=== PATIENT | male | born 1940 | race Caucasian/White ===

== ENCOUNTER 2019-08-16 05:44 | Observation (INO) | payer MEDICARE ==
[~2019-08-16] VITALS: Ht 180.3 cm; Wt 102.1 kg
[~2019-08-16 05:44] MED LIST: ASPIRIN81 M2 PO; FOSINOPRIL SODI40 M1 PO; Z.0.ACTOS45 MG PO; Z.0.GLIMEPIRIDE4 MG PO; Z.0.LANSOPRAZOLE30 M PO; Z.0.LIPITOR80 MG PO; Z.0.METOPROLOL TAR10 PO; Z.0.TRICOR145 MG PO; Z.0.ZANTAC 7575 MG PO
[2019-08-16 06:35] LABS: BASOPHILS % 0.3 % (0.0-1.0); EOSINOPHILS % 0.2 % (0.0-6.0); HEMATOCRIT 39.2 % (38.2-49.6); HEMOGLOBIN 12.7 g/dL (14.0-18.0); LYMPHOCYTES # (AUTO) 0.4 (1.0-3.2); MEAN CORPUSCULAR HEMOGLOBIN 30.9 pg (28-32); MEAN CORPUSCULAR HGB CONC 32.4 g/dL (31-35); MEAN CORPUSCULAR VOLUME 95.4 fL (81-99); MONOCYTES # (AUTO) 0.8 (0.2-0.8); MONOCYTES % 6.4 % (4.4-11.3); NEUTROPHILS # (AUTO) 10.7 (2.1-6.9); NEUTROPHILS % 89.5 % (38.7-80.0); PLATELET COUNT 105 x10e3/uL (140-360); RED BLOOD COUNT 4.11 x10e6/uL (4.3-5.7); RED CELL DISTRIBUTION WIDTH 14.1 % (11.7-14.4)
[2019-08-16 06:40] LABS: INR 0.91; PROTHROMBIN TIME 12.8 seconds (11.9-14.5)
[2019-08-16 06:48] LABS: CLARITY,URINE CLOUDY (CLEAR); COLOR,URINE RED (YELLOW); LEUKOCYTE ESTERASE ,URINE LARGE (NEGATIVE); NITRITE,URINE NEGATIVE (NEGATIVE); PROTEIN,URINE DIPSTICK 3+ (NEGATIVE)
[2019-08-16 06:49] LABS: BILIRUBIN,URINE NEGATIVE (NEGATIVE); KETONES,URINE NEGATIVE (NEGATIVE); URINE UROBILINOGEN 0.2 mg/dL (0.2 - 1)
[2019-08-16 06:50] LABS: ALANINE AMINOTRANSFERASE 30 IU/L (0-55); ALBUMIN 3.3 g/dL (3.5-5.0); ALBUMIN/GLOBULIN RATIO 1.1 (0.8-2.0); ALKALINE PHOSPHATASE 67 IU/L (40-150); BLOOD UREA NITROGEN 30 mg/dL (7-26); BUN/CREATININE RATIO 21 (6-25); CALCIUM 9.1 mg/dL (8.4-10.2); CARBON DIOXIDE 24 mmol/L (22-29); CHLORIDE 102 mmol/L (98-107); CREATINE KINASE 110 IU/L (30-200); EST GLOMERULAR FILTRATION RATE 49 ML/MIN (60-); GLUCOSE 232 mg/dL (74-118); SODIUM 136 mmol/L (136-145)
--- NOTE | 2019-08-16 06:53 | NUR ---
report given to flor castañeda
--- NOTE | 2019-08-16 06:57 | Diagnostic Imaging Report ---
EXAMINATION: CT of the abdomen and pelvis without contrast. TECHNIQUE: Spiral CT images of the abdomen and pelvis were performed from the lung bases to the lesser trochanters. No intravenous contrast was given per renal stone protocol. Coronal and sagittal reformatted images were obtained. COMPARISON: None. CLINICAL HISTORY:Hematuria DISCUSSION: ABSENCE OF INTRAVENOUS CONTRAST DECREASES SENSITIVITY FOR DETECTION OF FOCAL LESIONS AND VASCULAR PATHOLOGY. ABDOMEN/PELVIS: LOWER THORAX: Lung bases are unremarkable. No pleural effusion. Trace pericardial effusion. HEPATOBILIARY:No focal hepatic lesions. No intrahepatic biliary ductal dilation. The gallbladder is unremarkable. SPLEEN: No splenomegaly or focal splenic lesion. PANCREAS: No focal masses or ductal dilatation. ADRENALS: No adrenal nodule. KIDNEYS/URETERS: No hydronephrosis, calculi, or solid or cystic mass lesions. PELVIC ORGANS/BLADDER: The urinary bladder is collapsed and poorly evaluated. Coarse prostatic calcifications. PERITONEUM/RETROPERITONEUM: No ascites or pneumoperitoneum. LYMPH NODES: No pelvic sidewall, retroperitoneal, or mesenteric lymphadenopathy. VESSELS: Limited evaluation in the abscence of intravenous contrast. The abdominal aorta is non-aneurysmal. GI TRACT: Scattered sigmoid diverticula without wall thickening or adjacent inflammatory change. Appendix is not definitively visualized. No right lower quadrant inflammation. No small bowel dilatation to suggest obstruction. BONES AND SOFT TISSUES: Bilateral fat-containing inguinal hernias. Small fat-containing umbilical hernia. No osseous destructive lesions. Scattered bone islands area nonaggressive appearing sclerotic focus in the left iliac wing. Degenerative facet arthropathy and degenerative disc changes of the lumbar spine. IMPRESSION: No acute intra-abdominal or pelvic CT abnormalities. No urolithiasis. Atherosclerotic vascular disease. Large bowel diverticulosis without findings of diverticulitis. Trace nonspecific pericardial effusion. Signed by: Dr. Baljinder Noble M.D. on 08/16/2019 6:55 AM
[2019-08-16 06:59] LABS: BACTERIA,URINE MODERATE /HPF; EPITHELIAL CELLS,URINE FEW /LPF; RBC,URINE >50 /HPF (0-5); WBC,URINE (MAN) >50 /HPF (0-5)
[2019-08-16] MEDS ORDERED: MORPHINE SULFATE INJ 4 MG/ML INJ 1ML IV PRN (07:00)
[2019-08-16] MEDS ORDERED: ASPIRIN 81 MG CHEW TAB PO ONE (07:00)
[2019-08-16] MEDS ORDERED: ONDANSETRON HCL INJ 2MG/ML 2ML 2 MG/ML VIAL IV PRN (07:00)
--- OUTSIDE RECORDS SUMMARY | 2019-08-16 07:26 | XMS REPORT ---
Author Author [facility] Address Unknown Phone Unavailable Care Team Providers Care Work Order Detailer Name Role Phone RAMOS LAURA Unavailable Unavailable Problems This patient has no known problems. Allergies, Adverse Reactions, Alerts This patient has no known allergies or adverse reactions. Medications This patient has no known medications. Results Test Description Test Time Test Comments Text Results Atomic Results Result Comments CT ABDOMEN/PELVIS WO 2019-08-16 06:49:00 [facility] [address] [place] [address] Patient Name: KEITH WILL MR #: [id number] : 1940 Age/Sex: 79/M Req #: [id number] Adm Physician: Ordered by: LAURA RAMOS DO Report #: [id number] Location: ER Room/Bed: Procedure: [id number] CT/CT ABDOMEN/PELVIS WO Exam Date: Exam Time: REPORT STATUS: Signed EXAMINATION: CT of the abdomen and pelvis without contrast. TECH NIQUE: Spiral CT images of the abdomen and pelvis were performed from the lung bases to the lesser trochanters. No intravenous contrast was given per renal stone protocol. Coronal and sagittal reformatted images were obtained. COMPARISON: None. CLINICAL HISTORY:Hematuria DISCUSSION: ABSENCE OF INTRAVENOUS CONTRAST DECREASES SENSITIVITY FOR DETECTION OF FOCAL LESIONS AND VASCULAR PATHOLOGY. ABDOMEN/PELVIS: LOWER THORAX: Lung bases are unremarkable. No pleural effusion. Trace pericardial effusion. HEPATOBILIARY:No focal hepatic lesions. No intrahepatic biliary ductal dilation. The gallbladder is unremarkable. SPLEEN: No splenomegaly or focal splenic lesion. PANCREAS: No focal masses or ductal dilatation. ADRENALS: No adrenal nodule. KIDNEYS/URETERS: No hydronephrosis, calculi, or solid or cystic mass lesions. PELVIC ORGANS/BLADDER: The urinary bladder is collapsed and poorly evaluated. Coarse prostatic calcifications. PERITONEUM/RETROPERITONEUM: No ascites or pneumoperitoneum. LYMPH NODES: No pelvic sidewall, retroperitoneal, or mesenteric lymphadenopathy. VESSELS: Limited evaluation in the abscence of intravenous contrast. The abdominal aorta is non-aneurysmal. GI TRACT: Scattered sigmoid diverticula without wall thickening or adjacent inflammatory change. Appendix is not definitively visualized. No right lower quadrant inflammation. No small bowel dilatation to suggest obstruction. BONES AND SOFT TISSUES: Bilateral fat-containing inguinal hernias. Small fat-containing umbilical hernia. No osseous destructive lesions. Scattered bone islands area nonaggressive appearing sclerotic focus in the left iliac wing. Degenerative facet arthropathy and degenerative disc changes of the lumbar spine. IMPRESSION: No acute intra-abdominal or pelvic CT abnormalities. No urolithiasis. Atherosclerotic vascular disease. Large bowel diverticulosis without findings of diverticulitis. Trace nonspecific pericardial effusion. Signed by: Dr. Antonia Solano M.D. on 08/16/2019 6:55 AM Dictated By: ANTONIA SOLANO MD 4 Transcribed By: SARKIS on 08/16/19654 COPY TO: LAURA RAMOS DO
[2019-08-16 08:54] LABS: BAND NEUTROPHILS % (MANUAL) 4 %; LYMPHOCYTES % (MANUAL) 2 % (19-48); MONOCYTES % (MANUAL) 5 % (3.4-9.0); NEUTROPHILS % (MANUAL) 89 % (40-74); PLATELET ESTIMATE SLIGHTLY DECREASED; PLATELET MORPHOLOGY COMMENT NORMAL; RBC MORPHOLOGY COMMENT NORMAL
[2019-08-16] MEDS ORDERED: NON-FORMULARY MEDICATION (Aspirin 81 MG) PO SCH (09:15)
[2019-08-16] MEDS ORDERED: NON-FORMULARY MEDICATION (Atorvastatin Calcium (Lipitor) 80 MG) PO SCH (09:15)
--- NOTE | 2019-08-16 10:17 | NUR ---
up to restroom
[2019-08-16] MEDS ORDERED: METOPROLOL SUCCINATE 25 MG TAB XL ONE (13:02)
[2019-08-16] MEDS: METOPROLOL TARTRATE 50 MG TAB PO SCH ×2 (13:06→17:39)
[2019-08-16] MEDS ORDERED: SODIUM CHLORIDE 0.9% 1000ML 1,000 ML IV SCH (13:15)
[2019-08-16] MEDS ORDERED: CEFTRIAXONE SOD 1 GM/NS 50 ML 50 ML IV ONE (13:15)
--- NOTE | 2019-08-16 13:41 | Diagnostic Imaging Report ---
EXAM: CHEST 2 VIEWS DATE: 08/16/2019 12:34 PM INDICATION: Chest pain COMPARISON: None FINDINGS: The trachea is midline. The lungs are symmetrically expanded without evidence for large focal consolidation, pneumothorax, or significant pleural effusion. The cardiomediastinal silhouette and pulmonary vasculature are within normal limits. Atherosclerotic calcifications noted within the thoracic aorta. No acute osseous abnormality is identified. The surrounding soft tissues are unremarkable. IMPRESSION: No acute cardiopulmonary process identified. Signed by: Dr. Eugenio Monteiro MD on 08/16/2019 1:39 PM
[2019-08-16] MEDS ORDERED: CEFTRIAXONE SOD 1 GM VIAL ONE (14:23)
--- NOTE | 2019-08-16 15:06 | NUR ---
Received patient from ER, a/ox3, pleasant man and chief complaint of chest pain and hematuria. consults to cardiology and hematology and have seen patient in the ER, currently denies any chest pains, BNP elevated in the 300's, denies SOB. Reports symptoms started yesterday and waxing and waning. On continues telemetry. PMH significant for DM, HTN, GERD, HLD. Further work-up depending on clinical course and orders in place for thyroid panel, occult blood, cardiac markers, ECHO. Call light within reach and will monitor.
[2019-08-16 15:10] VITALS: BP 133/63
[2019-08-16 15:16] VITALS: BP 133/63
[2019-08-16 15:24] LABS: CREATINE KINASE 154 IU/L (30-200)
--- NOTE | 2019-08-16 16:24 | NUR ---
Orders per Dr. Alvarez for medium dose sliding scale and to increase Glimiperide to BiD.
[2019-08-16] MEDS: INSULIN REGULAR, HUMAN 100 UNIT/1 ML 3ML VIAL SQ SCH ×2 (16:30→21:00)
[2019-08-16] MEDS ORDERED: DEXTROSE 50% SYRINGE 50 ML IV PRN (16:30)
[2019-08-16] MEDS: GLIMEPIRIDE 2 MG TAB PO SCH (17:00)
[2019-08-16] MEDS: SODIUM CHLORIDE 0.9% 1000ML 1,000 ML SCH (17:00)
--- NOTE | 2019-08-16 19:03 | NUR ---
Rounds by Dr. Pedroza and orders in place for heart cath and other orders for iodine allergies
--- NOTE | 2019-08-16 19:15 | NUR ---
patient received awake, alert, lying quietly in bed. no c/o pain noted. ivf continue to infuse without difficulty. pm assessment complete. plan of care reviewed with patient. patient to be npo past mn for cardiac cath tomorrow. patient verbalizes understanding of this. call howard placed within reach. bed alarm remains on for safety. patient instructed to call for assistance when needed.
[2019-08-16] MEDS ORDERED: PREDNISONE 20 MG TAB PO NR (19:30)
[2019-08-16 19:58] VITALS: BP 137/65
[2019-08-16] MEDS: ATORVASTATIN 40 MG TAB PO SCH (20:35)
[2019-08-16] MEDS: FAMOTIDINE 20 MG TAB PO SCH (20:35)
--- NOTE | 2019-08-16 20:54 | Consultation ---
DATE OF CONSULTATION: 08/16/2019 Cardiac Consultation REASON FOR CONSULTATION: Abnormal EKG with PVCs, typical anginal symptoms, advanced symptoms. HISTORY OF PRESENT ILLNESS: A 79-year-old gentleman who came to this institution because of hematuria. He is having this for couple of days. Prior to that, he does have problem urinating and sometime he will leak. Regardless, at this time it was nikunj hematuria. The patient came to the emergency room and admitted for further management. Urinalysis showed hematuria. CT abdomen and pelvis showed diverticulosis. His EKG showed PVCs. His BUN and creatinine are elevated at 30 and 1.4. His BNP at 316. No chest x-ray was done. Talking to the patient, he does have very very typical angina, class 3 to early class 4. Whenever he walks, he will get severe chest pressure, chest tightness, radiating to his neck and to his jaw and then he will stop it. It will go away and then he can walk again. This symptoms are progressively worse over the last couple of years or so, but in the last few months it is becoming very frequent. Sometime at night, it will happen and he need to sit and then he will feel better . He denied having any nausea, no vomiting, no hematuria, no dysuria. He does have easy fatigability and chest tightness on exertion. REVIEW OF SYSTEMS: GENERAL: No fever, no chills. HEENT: Decreased hearing, decreased vision. PULMONARY: Shortness of breath on exertion with chest pressure, chest tightness, mostly cardiac. CARDIAC: Typical progressive worsening angina with very frequent episodes of angina. GI: GERD. No hematemesis. No melena. Occasional constipation. : Incontinence at times, increased frequency of urination and hematuria nikunj in the last few days. MUSCULOSKELETAL: Back pain, although it is by far much better since his laminectomy. HEMATOLOGY: Easy bruising, but no bleeding. NEUROLOGY: No seizure activity. No localized weakness. SOCIAL HISTORY: He is . He is nonsmoker. He drinks 1-2 beer a day. He is retired auto auto parts handler. HOME MEDICATIONS: Include Actos 45 mg a day, glimepiride 4 mg a day, Zantac 1 tablet a day, aspirin 81 mg a day, Lipitor 80 mg a day, fenofibrate 145 mg a day, lisinopril 40 mg a day, and metoprolol 100 mg twice a day. ALLERGIES: IODINE THAT IS MANY YEARS AGO CAUSING RASH. PAST MEDICAL HISTORY: 1. Diabetes mellitus since age 45. 2. Hypertension since age 45. 3. Hyperlipidemia since that age. 4. GERD. 5. Appendectomy. 6. Lumbar laminectomy. 7. Diverticulosis. 8. Several skin cancer surgeries. 9. Decreased hearing. FAMILY HISTORY: Father at age 91 of old age. Mother of old age at age 102. Two brothers, he lost one brother to diabetes mellitus complications at age 72. One sister, one son, and two daughters. PHYSICAL EXAMINATION: GENERAL: Obese gentleman. VITAL SIGNS: Blood pressure 130/80, heart rate of 110, and respiratory rate of 18. HEENT: Pupils are reactive. NECK: No elevation of jugular venous pulsation. Bilateral carotid bruit. No thyromegaly. CHEST: Clear to auscultation and percussion. HEART: PMI, 5th left intercostal space. Tachycardia noted with soft ejection systolic murmur. ABDOMEN: Soft with good bowel sounds. No organomegaly. EXTREMITIES: No cyanosis, no clubbing, and no edema. NEUROLOGIC: Awake, alert, and oriented. No motor deficit. Decreased hearing is noted. LABORATORY DATA: White blood cell count of 11.9, hemoglobin 12.7, hematocrit 39%, and platelet count of 105,000. Sodium of 136, potassium of 4, BUN of 30, creatinine of 1.4, and BNP of 316. Urinalysis positive for hematuria. EKG showing normal sinus rhythm, PVCs, nonspecific ST changes. Chest x-ray is not done. IMPRESSION AND PLAN: 1. Definitely the patient came with hematuria. 2. Diabetes mellitus of many years' duration. 3. Hypertension since age 45. 4. Hyperlipidemia. 5. Status post lumbar laminectomy. 6. Decreased hearing. 7. Very very typical angina progressively worse class 3 to early class 4. 8. Chronic renal insufficiency of possible class 4 with creatinine of 1.4. From a cardiac point of view, we will do the following, the patient to continue his Lipitor, his fenofibrate, his metoprolol, and just stop his lisinopril. The patient currently having hematuria, which will limit our options of cardiac treatment. Regardless, the patient in need for further procedures and he is having very typical symptoms of aggressive angina. We are going to schedule the patient for cardiac catheterization in the morning. Our options are limited. If he need intervention, probably will not do it, would refrain from that because of the hematuria. If he does have triple-vessel disease, then he will have bypass surgery. He will be premedicated for iodine allergy. MD JUAN CARLOS Marrero/MODL /[id number]
[2019-08-16] MEDS ORDERED: ASPIRIN 81 MG ENTERIC COATED PO SCH (21:00)
[2019-08-16 21:20] VITALS: BP 137/65
[2019-08-17] VITALS (9 sets, daily range): BP systolic 118–151; BP diastolic 55–66
[2019-08-17] MEDS ORDERED: PREDNISONE 20 MG TAB PO NR (05:00)
[2019-08-17] MEDS: METOPROLOL TARTRATE 50 MG TAB PO SCH ×4 (05:39→17:16)
[2019-08-17] MEDS: SODIUM CHLORIDE 0.9% 1000ML 1,000 ML SCH ×2 (05:40→09:00)
--- NOTE | 2019-08-17 05:50 | NUR ---
consent obtained for cardiac catheterization at this time and placed on chart.
[2019-08-17 05:58] LABS: BASOPHILS % 0.1 % (0.0-1.0); HEMATOCRIT 37.2 % (38.2-49.6); HEMOGLOBIN 12.3 g/dL (14.0-18.0); LYMPHOCYTES # (AUTO) 0.3 (1.0-3.2); LYMPHOCYTES % 3.3 % (18.0-39.1); MEAN CORPUSCULAR HEMOGLOBIN 31.1 pg (28-32); MEAN CORPUSCULAR HGB CONC 33.1 g/dL (31-35); MEAN CORPUSCULAR VOLUME 94.2 fL (81-99); MONOCYTES # (AUTO) 0.3 (0.2-0.8); MONOCYTES % 3.1 % (4.4-11.3); NEUTROPHILS # (AUTO) 7.9 (2.1-6.9); NEUTROPHILS % 92.7 % (38.7-80.0); PLATELET COUNT 84 x10e3/uL (140-360); RED BLOOD COUNT 3.95 x10e6/uL (4.3-5.7)
[2019-08-17 06:23] LABS: ALANINE AMINOTRANSFERASE 29 IU/L (0-55); ALBUMIN 2.9 g/dL (3.5-5.0); ALBUMIN/GLOBULIN RATIO 0.9 (0.8-2.0); ALKALINE PHOSPHATASE 62 IU/L (40-150); ANION GAP 13.2 mmol/L (8-16); BLOOD UREA NITROGEN 28 mg/dL (7-26); BUN/CREATININE RATIO 25 (6-25); CALCIUM 9.3 mg/dL (8.4-10.2); CARBON DIOXIDE 25 mmol/L (22-29); CHLORIDE 104 mmol/L (98-107); CREATININE, SERUM 1.11 mg/dL (0.72-1.25); EST GLOMERULAR FILTRATION RATE > 60 ML/MIN (60-); GLUCOSE 246 mg/dL (74-118); POTASSIUM 4.2 mmol/L (3.5-5.1); SODIUM 138 mmol/L (136-145)
[2019-08-17 06:27] LABS: CHOL/HDL RATIO 2.4 (3.9-4.7)
[2019-08-17 06:35] LABS: THYROID STIMULATING HORMONE 0.261 uIU/mL (0.350-4.940)
[2019-08-17 06:44] LABS: CREATINE KINASE 177 IU/L (30-200)
[2019-08-17] MEDS: INSULIN REGULAR, HUMAN 100 UNIT/1 ML 3ML VIAL SQ SCH ×4 (07:21→20:36)
[2019-08-17] MEDS: PANTOPRAZOLE SOD 40 MG TABEC PO SCH (07:30)
[2019-08-17] MEDS: FAMOTIDINE 20 MG TAB PO SCH ×2 (07:30→17:16)
[2019-08-17] MEDS ORDERED: LIDOCAINE HCL 2% LOCAL 20 ML VIAL ONE (07:37)
[2019-08-17] MEDS ORDERED: NITROGLYCERIN/D5W 200 MCG/ML 0 ML ONE (07:38)
[2019-08-17] MEDS ORDERED: IOPAMIDOL 370 MG/ML 200 ML INFUS..BTL INJ ONE (07:38)
[2019-08-17] MEDS ORDERED: HEPARIN SOD/SOD CHLORIDE 2,000 ML ONE (07:38)
[2019-08-17] MEDS ORDERED: SODIUM CHLORIDE 0.9% 1000ML 1,000 ML ONE (07:38)
[2019-08-17] MEDS ORDERED: MIDAZOLAM HCL 2 MG/2 ML VIAL ONE (07:39)
[2019-08-17] MEDS ORDERED: FENTANYL CITRATE/PF 100MCG/2 ML INJ ONE (07:39)
--- NOTE | 2019-08-17 07:48 | NUR ---
patient to yard laborer. 4 units regular insulin given for blood sugar 272. low dose due to NPO status. new iv placed in left forearm 20G in one try. patient tolerated well.
[2019-08-17] MEDS ORDERED: GLIMEPIRIDE 2 MG TAB PO SCH (08:00)
[2019-08-17] MEDS: GLIMEPIRIDE 2 MG TAB PO SCH ×2 (08:00→17:16)
[2019-08-17] MEDS ORDERED: FOSINOPRIL SODIUM 40 MG PO SCH (09:00)
--- NOTE | 2019-08-17 09:00 | NUR ---
RECEIVED PATIENT BACK FROM SUPERVISOR ROLLING ROOM. RIGHT FEMORAL ACCESS OBTAINED. NO HEMATOMA OR BLEEDING PRESENT. PATIENT TO BE ON BEDREST UNTIL 12:45.
[2019-08-17 09:05] LABS: BAND NEUTROPHILS % (MANUAL) 3 %; LYMPHOCYTES % (MANUAL) 3 % (19-48); METAMYELOCYTES % (MANUAL) 2 % (0-0); MONOCYTES % (MANUAL) 1 % (3.4-9.0); NEUTROPHILS % (MANUAL) 91 % (40-74); NUCLEATED RED BLOOD CELLS 0; PLATELET ESTIMATE SLIGHTLY DECREASED; PLATELET MORPHOLOGY COMMENT NORMAL; RBC MORPHOLOGY COMMENT NORMAL
[2019-08-17] MEDS: FENOFIBRATE 145 MG TAB PO SCH (12:28)
[2019-08-17] MEDS: PIOGLITAZONE HCL 45 MG TAB PO SCH (12:36)
[2019-08-17] MEDS: CEFTRIAXONE SOD 1 GM/NS 50 ML 50 ML IV SCH (12:42)
[2019-08-17] MEDS ORDERED: BACTRIM DS TAB1 EACH PO (15:07)
--- NOTE | 2019-08-17 16:34 | Operative Report ---
DATE OF PROCEDURE: 08/17/2019 SURGEON: Saul Lindo MD TITLE OF THE PROCEDURE: Left cardiac catheterization. INDICATION: Typical anginal symptoms in a patient, diabetic, hypertensive, hypercholesterolemic, and need for major procedure for hematuria. TECHNICAL DETAILS: After the usual sterile preparation and draping procedure, intravenous Versed and fentanyl given for sedation and local xylocaine for anesthesia. A 4-Central African sheath established in place, Manjeet left 4 and 3DRC catheter to engage the coronaries. Pigtail for hemodynamic measurement and left ventriculogram. At the end of the procedure, sheath was removed. Hemostasis achieved manually. No complication. No blood loss. RESULTS: A. Coronary angiogram. 1. Left main: Free of disease. 2. LAD: Several plaques at 30% in fact. The patient had very high 1st diagonal and 2nd diagonal is also medium in size. 3. Circumflex: Coronary artery giving 4 obtuse marginal, 30% blockage. 4. Right coronary artery: Minimal plaquing. a. Hemodynamic: Aorta pressure 130/70, LV pressure 130/26. b. Left ventriculogram: The right anterior oblique view showed normal size ventricle with an ejection fraction of 60% to 70% IMPRESSION: 1. Mild coronary artery disease. 2. Dominant right coronary artery. 3. Left ventricular ejection fraction of 60% to 70%. COMPLICATIONS: None. BLOOD LOSS: None. Saul Lindo MD MOJ/MODL /[id number]
--- NOTE | 2019-08-17 16:39 | Consultation ---
DATE OF CONSULTATION: 08/16/2019 Urology Consultation REASON FOR CONSULTATION: Gross hematuria. HISTORY OF PRESENT ILLNESS: Matthew Dozier is a 79-year-old man with no previous urological history. He denies hematuria, dysuria, urinary tract infections, or urolithiasis. He does report urinary urgency and also long-standing nocturia 2-3 times per night. He denies any prior episodes of hematuria, any urinary tract infections, and any stones. PAST MEDICAL AND SURGICAL HISTORY: 1. Status post appendectomy. 2. Status post back surgery. 3. Hypertension. 4. Diabetes mellitus. 5. Hypercholesterolemia. FAMILY HISTORY: Noncontributory to the active urological problems. ALLERGIES: IODINE. SOCIAL HISTORY: The patient quit smoking over 25 years ago. Denies smoking, ethanol, or drug use. The patient still works in [employer]. REVIEW OF SYSTEMS: Includes atypical chest pain, is otherwise consistent with above history of present illness, past medical history, otherwise negative for all systems. PHYSICAL EXAMINATION: GENERAL: Healthy-appearing 79-year-old man. In x-rays, we are getting a chest x-ray. VITAL SIGNS: He is currently febrile. Vitals are currently stable. ABDOMEN: Soft, nondistended, nontender without costovertebral angle tenderness. Kidneys not palpable without hepatosplenomegaly. No obvious evidence of hernia. For the remaining physical examination systems, please refer to the admission history and physical as well as ERT sheet. LABORATORY STUDIES: White blood cell count is 11,970, hemoglobin 12.7, platelets 105,000. Creatinine is elevated at 1.40, glucose elevated 232. Urinalysis significant for greater than 50 rbcs, greater than 50 wbcs, moderate bacteria. CT scan of the abdomen and pelvis was performed without contrast, it revealed coarse prostatic calcifications. ASSESSMENT: 1. Gross hematuria. 2. Urinary tract infection. 3. Leukocytosis. 4. Thrombocytopenia. 5. Presumably acute renal failure. 6. Chronic prostatitis. 7. Nocturia. 8. Urgency. 9. Anemia. PLAN: 1. I defer the hematological and electrolyte abnormalities to the primary team. 2. I asked the nurse to call the lab and add a urine culture and sensitivity to the ER urinalysis. 3. I recommend following up on the patient's urine culture and adjusting antibiotics accordingly. 4. Cystoscopic examination at some point is certainly warranted. I will defer any surgical intervention at the present time until cardiac clearance has been obtained. Also, we will await the urine culture and sensitivity and resolution of the urinary tract infections. Thank you very much for involving us in the care of your patient. We will be happy to follow him along with you as well as an outpatient. Mj MD THIAGO Peterson/FRANDY /[id number] cc: Shar Thompson
--- NOTE | 2019-08-17 17:29 | NUR ---
SPOKE TO DR. LEÓN REGARDING HIGH BLOOD SUGAR. NEW ORDER FOR LANTUS 15 UNITS HS AND INSULIN HUMALOG 8 UNITS WITH EACH MEAL. HOLD DISCHARGE UNTIL TOMORROW. NEW ORDERS IMPLEMENTED.
--- NOTE | 2019-08-17 19:05 | NUR ---
patient received awake, alert, lying quietly in bed. hob slightly elevated. dressing to right groin c,d,i. no c/o pain noted. pm assessment complete. call howrad placed within reach. patient instructed to call for assistance when needed.
--- NOTE | 2019-08-17 20:24 | NUR ---
call placed tpo re: blood sugar 443. sliding scale only goes to 400 and greater than 400 call md. no new orders noted.
[2019-08-17] MEDS: ATORVASTATIN 40 MG TAB PO SCH (20:36)
[2019-08-17] MEDS ORDERED: INSULIN GLARGINE 100 UNITS/ML VIAL SQ SCH ×2 (21:00)
--- NOTE | 2019-08-17 23:41 | NUR ---
recheck blood sugar is 209 at this time.
[2019-08-18] VITALS (8 sets, daily range): BP systolic 114–154; BP diastolic 55–72
--- NOTE | 2019-08-18 | NUR ---
patient appears to be resting quietly. no c/o pain noted. dressing to right groin remains c,d,i.
[2019-08-18] MEDS: METOPROLOL TARTRATE 50 MG TAB PO SCH ×4 (06:00→17:20)
--- NOTE | 2019-08-18 07:00 | NUR ---
RECEIVED PATIENT AWAKE IN BED NO S/S OF DISTRESS. BED LOW, WHEELS LOCKED, SIDE RAILS X2. CALL LIGHT IN REACH WILL CONTINUE TO MONITOR PATIENT.
[2019-08-18] MEDS: INSULIN REGULAR, HUMAN 100 UNIT/1 ML 3ML VIAL SQ SCH ×7 (07:30→21:34)
[2019-08-18] MEDS: FENOFIBRATE 145 MG TAB PO SCH (08:30)
[2019-08-18] MEDS: PANTOPRAZOLE SOD 40 MG TABEC PO SCH (08:30)
[2019-08-18] MEDS: GLIMEPIRIDE 2 MG TAB PO SCH ×2 (08:30→16:47)
[2019-08-18] MEDS: PIOGLITAZONE HCL 45 MG TAB PO SCH (08:30)
[2019-08-18] MEDS: FAMOTIDINE 20 MG TAB PO SCH ×2 (08:30→16:47)
[2019-08-18] MEDS: CEFTRIAXONE SOD 1 GM/NS 50 ML 50 ML IV SCH (12:47)
--- NOTE | 2019-08-18 12:49 | Discharge Summary ---
HOSPITAL COURSE: A 79-year-old male, who has a past medical history positive for diabetes, hypertension, originally came to the hospital because of hematuria. He has some atypical chest pain. He has had a cardiac catheterization done by Dr. Rivera, which found minimal coronary artery disease. Also he is growing gram-negative bacteria in the urine, but no fever. The patient is going to be going home today. Dr. Peterson assisted him as an outpatient for cystoscopy after he is done with antibiotic. PHYSICAL EXAMINATION: HEART: Showed regular rhythm. Normal S1, S2 sound. LUNGS: Clear bilaterally. ABDOMEN: Soft. EXTREMITIES: Show no evidence of cyanosis, edema, or trauma. FINAL IMPRESSION: 1. Atypical chest pain with evidence of minimal coronary artery disease. 2. 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 3. Urinary tract infection. 4. Hypertension. 5. Hypercholesterolemia. PLAN OF TREATMENT: The patient is going to be sent home on Bactrim DS twice a day for 10 days, Protonix 40 mg daily, fenofibrate 145 mg daily, metoprolol 50 mg q.6 hours, Pepcid 20 mg twice a day, Actos 45 mg daily, glimepiride 4 mg twice a day, Lipitor 80 mg daily, and aspirin 81 mg daily. MD OSEI Andrade/FRANDY /[id number]
[2019-08-18] MEDS ORDERED: INSULIN LISPRO 100 UNIT/1 ML 3ML VIAL SQ SCH ×2 (16:30)
--- NOTE | 2019-08-18 16:39 | NUR ---
INSULIN ADJUSTED BY DR. LEÓN AFTER MAKING ROUNDS. INSULIN DOSE INCREASED FROM 8 UNITS TO 12 UNITS WITH MEALS. WILL GIVE ANOTHER [address] LEÓN'S ORDER.
--- NOTE | 2019-08-18 18:02 | NUR ---
SPOKE WITH DR. BERRY, NEW ORDER FOR 15 UNITS HUMALOG WITH EACH MEAL, 25 UNITS OF LANTUS HS AND HEMOGLOBIN A1C. DR. BERRY WILL SEE PATIENT TOMORROW. NEW ORDERS IMPLEMENTED.
--- NOTE | 2019-08-18 18:41 | Progress Note ---
DATE: 08/18/2019 Internal Medicine Progress Note SUBJECTIVE: The patient is doing better, but blood sugar is coming down. Finally, he was in the 400 range. So far, it 250 range now. Also, we are going to optimize the insulin regimen including Lantus and Humalog and see if we can get it in control and hopefully he can go home tomorrow. PHYSICAL EXAMINATION: VITAL SIGNS: Blood pressure is 140/62, temperature 36.3, heart rate 67 per minute, respiratory rate 20 per minute, oxygen saturation 97%. HEART: Showed regular rhythm. Normal S1, S2 sound. LUNGS: Clear bilaterally. EXTREMITIES: Show no edema. LABORATORY DATA: BMP; sodium 138, potassium 4.2, chloride 104, CO2 25, BUN 28, creatinine 1.1, glucose 246. On CBC; white count 8.48, hemoglobin 12.3, hematocrit 37.2, and platelet count 84,000. FINAL IMPRESSION: 1. Coronary artery disease, status post cardiac catheterization with minimal coronary artery disease. Ejection fraction 60%. 2. Uncontrolled diabetes mellitus type 2 with mild renal insufficiency. 3. Hypertension. 4. Hyperlipidemia. PLAN OF TREATMENT: Continue ceftriaxone 2 g IV daily, morphine 4 mg IV q.4 hours as needed, Zofran 4 mg IV q.4 hours as needed, fenofibrate 145 mg daily, metoprolol 50 mg q.6 hours, Pepcid 20 mg twice a day, Actos 45 mg daily, glimepiride 4 mg twice a day. We are going to increase the Lantus to 20 units at bedtime. Continue Lipitor 80 mg daily. Continue monitoring blood sugar before meals and at bedtime, which has increased Humalog to 10 units before each meal. Continue Protonix [address] Vickey Joiner will be covering for me this weekend, so hopefully once the blood sugar is under control, he might be able to go home. Dr. Gautam has been consulted from Endocrinology point of view. Continue diabetic diet. Ronnell Alvarez MD LAS/MODL /[id number]
--- NOTE | 2019-08-18 19:00 | NUR ---
Received patient in bed with eyes open. Resp. even and unlabored. No pain/ discomfort noted. Call light in reach. Bed locked in low position. Family at bedside.
[2019-08-18] MEDS ORDERED: INSULIN GLARGINE 100 UNITS/ML VIAL SQ SCH (21:00)
[2019-08-18] MEDS: ATORVASTATIN 40 MG TAB PO SCH (21:30)
[2019-08-18] MEDS: INSULIN GLARGINE 100 UNITS/ML VIAL SQ SCH (21:34)
[2019-08-19] VITALS (8 sets, daily range): BP systolic 131–159; BP diastolic 60–67
[2019-08-19] MEDS: METOPROLOL TARTRATE 50 MG TAB PO SCH ×4 (05:35→18:36)
[2019-08-19] MEDS: INSULIN REGULAR, HUMAN 100 UNIT/1 ML 3ML VIAL SQ SCH ×3 (08:40→16:30)
[2019-08-19] MEDS: INSULIN LISPRO 100 UNIT/1 ML 3ML VIAL SQ SCH ×4 (08:45→22:24)
[2019-08-19] MEDS: FENOFIBRATE 145 MG TAB PO SCH ×2 (09:00→22:23)
[2019-08-19] MEDS: GLIMEPIRIDE 2 MG TAB PO SCH (09:00)
[2019-08-19] MEDS: PANTOPRAZOLE SOD 40 MG TABEC PO SCH (09:00)
[2019-08-19] MEDS: FAMOTIDINE 20 MG TAB PO SCH ×2 (09:00→17:30)
[2019-08-19] MEDS: PIOGLITAZONE HCL 45 MG TAB PO SCH (09:00)
--- NOTE | 2019-08-19 09:28 | NUR ---
CLARIFIED HOME MEDICATIONS WITH PT, EMAR NOTED
[2019-08-19] MEDS: CEFTRIAXONE SOD 1 GM/NS 50 ML 50 ML IV SCH (13:41)
--- NOTE | 2019-08-19 16:02 | NUR ---
PT REPORTS "FEELING LIKE MY SUGAR IS DROPPING", RECHECKED GLUCOSE AT 71, PT GIVEN JUICE AND CRACKERS, CALL LIGHT WITHIN REACH, FAMILY AT SIDE
--- NOTE | 2019-08-19 17:00 | NUR ---
PT REPORTS FEELING BETTER, PT NOW AMBULATING IN HALLWAY, STEADY GAIT
[2019-08-19 18:53] LABS: FREE T4 (FREE THYROXINE) 1.02 ng/dL (0.8-1.8); THYROID STIMULATING HORMONE 1.035 uIU/mL (0.350-4.940)
[2019-08-19] MEDS ORDERED: PIOGLITAZONE HCL 45 MG TAB PO SCH (21:00)
--- NOTE | 2019-08-19 21:45 | NUR ---
Pt requesting to receive medication at later time. Pt walking in [place] with family.
[2019-08-19] MEDS: ATORVASTATIN 40 MG TAB PO SCH (22:23)
[2019-08-19] MEDS: INSULIN GLARGINE 100 UNITS/ML VIAL SQ SCH (22:25)
--- NOTE | 2019-08-19 22:56 | Consultation ---
DATE OF CONSULTATION: 08/18/2019 Endocrine Consultation Thank you very much for referring this patient. Patient of Dr. Joiner. HISTORY OF PRESENT ILLNESS: This is a 79-year-old white male gentleman, who was referred to me for evaluation of uncontrolled diabetes mellitus. The patient reportedly is a known diabetic for almost 40 years. He was prediabetic initially and is presently taking a combination of Actos 30 mg once daily and glimepiride 4 mg twice daily. This time, the patient came to the hospital with history of chest pain and hematuria. He had a workup done and during the hospital stay, his blood sugars have been elevated. He was started on combination of the Lantus and Humalog insulin and the blood sugars are still fluctuating and his hemoglobin A1c is 9.4. The patient also has history of hyperlipidemia, for which he is on Lipitor 80 mg once daily. PHYSICAL EXAMINATION: GENERAL: Today, the patient is alert, awake, little bit apprehensive. VITAL SIGNS: His heart rate is 70, blood pressure 140/80 mmHg. HEENT: Essentially unremarkable. NECK: Thyroid is palpable. Clinically, he is near euthyroid. CHEST: Bilateral vesicular breathing. No rales heard. CARDIAC: First and second heart sounds. There is no third or fourth heart sounds. Ejection systolic murmur is grade 2/6. 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 LABORATORY DATA: His blood sugars have been in 350 range. 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 PLAN: At this time is to continue the combination of Humalog and Lantus insulin and discontinue the Actos and Amaryl for now. The patient agrees with that and will do some more diabetic education and hopefully get him out in 24 hours. Thank you again for referring this patient. I will follow this patient with you. MD JONAS Pritchard/DEVINL /[id number]
[2019-08-20] VITALS (8 sets, daily range): BP systolic 133–172; BP diastolic 63–76
[2019-08-20] MEDS: METOPROLOL TARTRATE 50 MG TAB PO SCH ×5 (01:01→18:36)
[2019-08-20] MEDS: INSULIN LISPRO 100 UNIT/1 ML 3ML VIAL SQ SCH ×7 (07:30→21:00)
[2019-08-20] MEDS: FAMOTIDINE 20 MG TAB PO SCH ×2 (09:00→16:30)
[2019-08-20] MEDS: CEFTRIAXONE SOD 1 GM/NS 50 ML 50 ML IV SCH (13:06)
--- NOTE | 2019-08-20 13:07 | NUR ---
PT FAMILY CONCERNED PT IS NOT " AWAKE USUAL", VS 133/59, HR 93, GLUCOSE 95 AT THIS TIME, MD Edouard MORENO INTO SEE PT , MADE AWARE OF PT CHANGE, ORDERS NOTED FOR LABS, FAMILY AT SIDE, CALL LIGHT WITHIN REACH
[2019-08-20 13:48] LABS: BASOPHILS % 0.2 % (0.0-1.0); EOSINOPHILS # (AUTO) 0.1 (0.0-0.4); EOSINOPHILS % 1.7 % (0.0-6.0); HEMATOCRIT 35.4 % (38.2-49.6); HEMOGLOBIN 11.7 g/dL (14.0-18.0); LYMPHOCYTES # (AUTO) 0.3 (1.0-3.2); LYMPHOCYTES % 5.2 % (18.0-39.1); MEAN CORPUSCULAR HEMOGLOBIN 30.7 pg (28-32); MEAN CORPUSCULAR HGB CONC 33.1 g/dL (31-35); MEAN CORPUSCULAR VOLUME 92.9 fL (81-99); MONOCYTES # (AUTO) 0.5 (0.2-0.8); MONOCYTES % 8.2 % (4.4-11.3); NEUTROPHILS # (AUTO) 5.1 (2.1-6.9); NEUTROPHILS % 84.4 % (38.7-80.0); PLATELET COUNT 65 x10e3/uL (140-360); RED BLOOD COUNT 3.81 x10e6/uL (4.3-5.7); RED CELL DISTRIBUTION WIDTH 14.2 % (11.7-14.4)
--- NOTE | 2019-08-20 14:10 | NUR ---
MD BERRY INTO SEE PT, DISCUSSED POC, DUE TO PT MED ADJUSTMENTS AND FEELING "TIRED AND WEAK", RECOMMENDED STAYING ONE MORE NIGHT TO MONITOR GLUCOSE LEVELS AND HOW PT IS REACTING,
[2019-08-20 14:41] LABS: ANION GAP 12.7 mmol/L (8-16); BLOOD UREA NITROGEN 15 mg/dL (7-26); BUN/CREATININE RATIO 16 (6-25); CALCIUM 8.9 mg/dL (8.4-10.2); CARBON DIOXIDE 27 mmol/L (22-29); CHLORIDE 101 mmol/L (98-107); CREATININE, SERUM 0.91 mg/dL (0.72-1.25); EST GLOMERULAR FILTRATION RATE > 60 ML/MIN (60-); GLUCOSE 98 mg/dL (74-118); POTASSIUM 3.7 mmol/L (3.5-5.1); SODIUM 137 mmol/L (136-145)
[2019-08-20 15:44] LABS: EOSINOPHILS % (MANUAL) 1 % (0-7); LYMPHOCYTES % (MANUAL) 12 % (19-48); MONOCYTES % (MANUAL) 7 % (3.4-9.0); NEUTROPHILS % (MANUAL) 80 % (40-74)
[2019-08-20] MEDS ORDERED: ACETAMINOPHEN 325 MG TAB PO PRN (15:45)
[2019-08-20 15:48] LABS: PLATELET ESTIMATE MARKEDLY DECREASED; PLATELET MORPHOLOGY COMMENT FEW EDTA CLUMPING; RBC MORPHOLOGY COMMENT NORMAL
--- NOTE | 2019-08-20 17:23 | NUR ---
SPOKE WITH MD MORENO, MADE AWARE OF MD BERRY'S RECOMMENDATIONS AND NOTIFIED OF CURRENT LAB RESULTS AND THAT PT STILL REPORTS FEELING WEAK BUT " SOMEWHAT BETTER", ORDERS TO NOTIFY MD LEÓN IN AM
--- NOTE | 2019-08-20 19:00 | NUR ---
WALKING ROUNDS PERFORMED, RECEIVED PT LAYING SEMI FOWLERS IN BED, AAOX3, RR EVEN AND NON-LABORED, ON ROOM AIR. NO S/SX OF DISTRESS NOTED. LEFT PT SITTING ON SIDE OF BED, BED IN LOW LOCKED POSITION, SIDE RAILS UPX2, CALL LIGHT AND PHONE WITHIN REACH.
--- NOTE | 2019-08-20 19:20 | NUR ---
PT AMBULATING IN [place] WITH FAMILY AT SIDE, STEADY GAIT NOTED.
[2019-08-20] MEDS ORDERED: INSULIN GLARGINE 100 UNITS/ML VIAL SQ SCH (21:00)
[2019-08-20] MEDS: FENOFIBRATE 145 MG TAB PO SCH (21:35)
[2019-08-20] MEDS: ATORVASTATIN 40 MG TAB PO SCH (21:35)
[2019-08-21] VITALS: BP 143/63
[2019-08-21] MEDS: METOPROLOL TARTRATE 50 MG TAB PO SCH ×3 (00:09→12:29)
[2019-08-21 04:00] VITALS: BP 149/67
--- NOTE | 2019-08-21 06:53 | NUR ---
Received patient lying in bed with eyes open. Respiration even and unlabored without SOB. Call light in reach.
[2019-08-21] MEDS: INSULIN LISPRO 100 UNIT/1 ML 3ML VIAL SQ SCH ×4 (07:30→12:29)
[2019-08-21 07:51] VITALS: BP 162/77
[2019-08-21 09:00] VITALS: BP 133/63
[2019-08-21 09:59] VITALS: BP 162/77
[2019-08-21] MEDS: FAMOTIDINE 20 MG TAB PO SCH (10:18)
[2019-08-21] MEDS ORDERED: ONDANSETRON HCL 4 MG ORAL DISINTEGRATING TAB PO PRN (11:00)
[2019-08-21 12:23] VITALS: BP 149/69
--- NOTE | 2019-08-21 12:47 | NUR ---
PIV to left FA discontinued. Catheter tip intact, no bleeding noted. Patient is to discharge to home. Prescription given. Transported patient via wheelchair with all personal belongings taken by spouse.
== END 2019-08-21 12:47 | disposition home or self-care (01) ==
LOC: ER 07:23 → ERHOLD 07:33 → MED/SURG 15:13
PROVIDERS: ADMIT Internal Medicine; ATTEND Internal Medicine
DX: I25.119 Atherosclerotic heart disease of native coronary artery with unspecified angina pectoris (principal); E11.22 Type 2 diabetes mellitus with diabetic chronic kidney disease; N39.0 Urinary tract infection, site not specified; N18.3 Chronic kidney disease, stage 3 (moderate); E78.5 Hyperlipidemia, unspecified; Z87.891 Personal history of nicotine dependence; R31.0 Gross hematuria; D69.6 Thrombocytopenia, unspecified; N17.9 Acute kidney failure, unspecified; N41.1 Chronic prostatitis; D64.9 Anemia, unspecified; I12.9 Hypertensive chronic kidney disease with stage 1 through stage 4 chronic kidney disease, or unspecified chronic kidney disease; N41.9 Inflammatory disease of prostate, unspecified; E66.9 Obesity, unspecified; Z68.29 Body mass index [BMI] 29.0-29.9, adult; E11.21 Type 2 diabetes mellitus with diabetic nephropathy; E78.00 Pure hypercholesterolemia, unspecified; B96.20 Unspecified Escherichia coli [E. coli] as the cause of diseases classified elsewhere; Z79.82 Long term (current) use of aspirin; Z79.84 Long term (current) use of oral hypoglycemic drugs; Z91.048 Other nonmedicinal substance allergy status
CPT/HCPCS: 36415 ×6; 71046; 74176; 80048; 80053 ×2; 80061; 81001; 82270; 82550 ×2; 82553 ×2; 82948 ×6; 83036; 83880; 84439; 84443 ×2; 84484 ×2; 85025 ×3; 85610; 87086; 87186; 93005; 93306; 93458; 99284; C1766; G0378 ×6; J0696 ×5; J1815 ×2; J1817 ×2; J2001; J2250; J3010; J7030 ×2; J7512 ×2; Q9967; S0164 ×2; 99152

== ENCOUNTER 2021-01-30 04:11 | Emergency (ER) | payer MEDICARE ==
[~2021-01-30] VITALS: Ht 180.3 cm; Wt 102.1 kg
[~2021-01-30 04:11] MED LIST changes: +BACTRIM DS TAB1 EACH PO
== END 2021-01-30 04:57 | disposition home or self-care (01) ==
LOC: ER 04:30
DX: E11.649 Type 2 diabetes mellitus with hypoglycemia without coma (principal); Z79.4 Long term (current) use of insulin; I10 Essential (primary) hypertension; K21.9 Gastro-esophageal reflux disease without esophagitis; E78.5 Hyperlipidemia, unspecified
CPT/HCPCS: 99282